=== PATIENT | female | born 1930 | race Caucasian/White ===

== ENCOUNTER 2017-10-12 11:08 | Emergency (ER) | payer OTHER ==
[2017-10-12] MEDS ORDERED: NA CHLORIDE 0.9% 500 ML ONE (11:38)
--- NOTE | 2017-10-12 11:54 | RAD REPORT ---
EXAM DESCRIPTION: CT - Head Brain Wo Cont - 10/12/2017 11:49 am CLINICAL HISTORY: Syncope, head injury. COMPARISON: 02/08/2012 TECHNIQUE: All CT scans are performed using dose optimization technique as appropriate and may inclu de automated exposure control or mA/KV adjustment according to patient size. FINDINGS: No intracranial hemorrhage, hydrocephalus or extra-axial fluid collection.No areas of brai n edema or evidence of midline shift. The paranasal sinuses and mastoids are clear. The calvarium is intact. IMPRESSION: No acute intracranial abnormality.
[2017-10-12 11:58] LABS: Absolute Lymphocytes (CBC) 1.1 K/uL (0.7-4.9); Absolute Monocytes 0.5 K/uL (0.1-1.3); Absolute Neutrophil 5.1 K/uL (1.8-8.0); Basophils % 0.6 % (0-1.3); Eosinophils % 1.3 % (0-4.4); Hematocrit 34.2 % (36.0-45.0); Lymphocytes % 16.2 % (15.3-44.8); MCH 31.4 pg (27.0-35.0); MCV 94.1 fL (80-100); MPV 7.4 fL (7.6-11.3); Monocytes % 7.4 % (3.3-12.3); RBC Red Blood Cell Count 3.63 M/uL (3.86-4.86)
[2017-10-12 12:15] LABS: Protime INR 0.97
[2017-10-12 12:24] LABS: CKMB Creatine Kinase MB 3.5 ng/ml (0.3-4.0)
[2017-10-12 13:03] LABS: Thyroid Stimulating Hormone 2.04 uIU/mL (0.34-5.60)
--- NOTE | 2017-10-12 13:04 | EDPHYS ---
Physician Documentation [facility] Name: Daphne Dorado Age: 87 yrs Sex: Female : 1930 Arrival Date: 10/12/2017 Time: 11:11 Bed 23 Private MD: Alexx Mayer ED Physician Wilfredo Gruber HPI: 10/12 12:39 This 87 yrs old Female presents to ER via Wheelchair with complaints of rn Passed Out Prior To Arrival. 12:39 The patient has experienced syncope. Onset: The symptoms/episode began/occurred just rn prior to arrival. Duration: This was a single episode. Associated injury: Head/face: contusion. Current symptoms: Currently, the patient is not experiencing any symptoms. The patient has experienced similar episodes in the past. Reports hx of multiple episodes of passing out, far in between, had walked 5 miles this morning as she normally does, felt lightheaded when talking to neighbor, then woke up on floor, hit head on hard surface, no seizure, no vomiting, feels fine now, no headache, not on anticoagulation. Denies chest pain/abd pain/focal neuro complaint prior to passing out or now. States doesn't drink as much water as she should.. Historical: - Allergies: 11:23 No Known Allergies; tw2 - Home Meds: 11:23 levothyroxine 75 mcg tab 1 tab once daily [Active]; tw2 - PSHx: 11:23 Thyroidectomy; tw2 - Immunization history:: Adult Immunizations up to date. - Social history:: Smoking status: Patient/guardian denies using tobacco. - Family history:: not pertinent. - Hospitalizations: : No recent hospitalization is reported. ROS: 12:39 Constitutional: Negative for fever, chills, and weight loss, Eyes: Negative for injury, rn pain, redness, and discharge, Neck: Negative for injury, pain, and swelling, Cardiovascular: Negative for chest pain, palpitations, and edema, Respiratory: Negative for shortness of breath, cough, wheezing, and pleuritic chest pain, Abdomen/GI: Negative for abdominal pain, nausea, vomiting, diarrhea, and constipation, Back: Negative for injury and pain, MS/Extremity: Negative for injury and deformity, Skin: Negative for injury, rash, and discoloration, Neuro: Negative for headache, weakness, numbness, tingling, and seizure. Exam: 12:39 Constitutional: This is a well developed, well nourished patient who is awake, alert, rn and in no acute distress. Head/Face: Normocephalic, atraumatic. Eyes: Pupils equal round and reactive to light, extra-ocular motions intact. Lids and lashes normal. Conjunctiva and sclera are non-icteric and not injected. Cornea within normal limits. Periorbital areas with no swelling, redness, or edema. ENT: dry MM Neck: Trachea midline, no thyromegaly or masses palpated, and no cervical lymphadenopathy. Supple, full range of motion without nuchal rigidity, or vertebral point tenderness. No Meningismus. Cardiovascular: Regular rate and rhythm with a normal S1 and S2. No gallops, murmurs, or rubs. Normal PMI, no JVD. No pulse deficits. Respiratory: Lungs have equal breath sounds bilaterally, clear to auscultation and percussion. No rales, rhonchi or wheezes noted. No increased work of breathing, no retractions or nasal flaring. Abdomen/GI: Soft, non-tender, with normal bowel sounds. No distension or tympany. No guarding or rebound. No evidence of tenderness throughout. Back: No spinal tenderness. No costovertebral tenderness. Full range of motion. MS/ Extremity: Pulses equal, no cyanosis. Neurovascular intact. Full, normal range of motion. Equal circumference. Neuro: Awake and alert, GCS 15, oriented to person, place, time, and situation. Cranial nerves II-XII grossly intact. Motor strength 5/5 in all extremities. Sensory grossly intact. Cerebellar exam normal. Normal gait. 13:00 ECG was reviewed by the Attending Physician. rn Vital Signs: 11:23 BP 108 / 67; Pulse 75; Resp 17; Temp 98.0(TE); Pulse Ox 96% on R/A; Weight 38.56 kg tw2 (R); Height 5 ft. 2 in. (157.48 cm); Pain 0/10; 12:30 BP 133 / 64; Pulse 49; Resp 15; Pulse Ox 98% on R/A; sv 11:23 Body Mass Index 15.55 (38.56 kg, 157.48 cm) tw2 MDM: 11:26 Patient medically screened. rn 13:01 Differential Diagnosis: idiopathic syncope, vasovagal episode, dehydration. Data rn reviewed: vital signs, nurses notes, lab test result(s), EKG, radiologic studies, CT scan, and as a result, I will discharge patient. Counseling: I had a detailed discussion with the patient and/or guardian regarding: the historical points, exam findings, and any diagnostic results supporting the discharge/admit diagnosis, lab results, radiology results, the need for outpatient follow up, to return to the emergency department if symptoms worsen or persist or if there are any questions or concerns that arise at home. Special discussion: I discussed with the patient/guardian in detail that at this point there is no indication for admission to the hospital. It is understood, however, that if the symptoms persist or worsen the patient needs to return immediately for re-evaluation. ED course: Normal BP, normal ecg, neg trop, normal ct head, normal neuro exam, fit and walks miles daily, not drinking water, + mild dehydration/ pre-renal on labs, will dc home with return precautions. . 10/12 11:33 Order name: Basic Metabolic Panel; Complete Time: 13:10/12 11:33 Order name: BNP; Complete Time: 12:10/12 11:33 Order name: CBC with Diff; Complete Time: 12:10/12 11:33 Order name: Ckmb; Complete Time: 13:10/12 11:33 Order name: CPK; Complete Time: 13:10/12 11:33 Order name: Magnesium; Complete Time: 13:10/12 11:33 Order name: CT Head Brain wo Cont; Complete Time: 12:10/12 11:33 Order name: Protime (+inr); Complete Time: 12:10/12 11:33 Order name: Ptt, Activated; Complete Time: 12:10/12 11:33 Order name: Troponin (emerg Dept Use Only); Complete Time: 12:59 10/12 11:33 Order name: EKG; Complete Time: 11:34 10/12 11:33 Order name: TSH; Complete Time: 13:10/12 11:33 Order name: T4 Free; Complete Time: 13:10/12 11:33 Order name: Cardiac monitoring; Complete Time: 11:42 10/12 11:33 Order name: EKG - Nurse/Tech; Complete Time: 12:30 rn 10/12 11:33 Order name: IV Saline Lock; Complete Time: : rn 10/12 11: Order name: Labs collected and sent; Complete Time: rn 10/12 11: Order name: NPO; Complete Time: : rn 10/12 11:33 Order name: O2 Per Protocol; Complete Time: rn 10/12 11: Order name: O2 Sat Monitoring; Complete Time: : rn EC:00 Rate is 61 beats/min. Rhythm is regular. QRS [place] is Normal. SD interval is normal. QRS rn interval is normal. QT interval is normal. No Q waves. T waves are Normal. No ST changes noted. Clinical impression: Normal ECG. Interpreted by me. Administered Medications: 12:13 Drug: NS 0.9% 500 ml Route: IV; Rate: bolus; Site: right antecubital; sv 13:00 Follow up: Response: No adverse reaction; IV Status: Completed infusion; IV Intake: sv 500ml Disposition: 10/12/17 13:02 Discharged to Home. Impression: Dehydration, Syncope and collapse. - Condition is Stable. - Discharge Instructions: Dehydration, Adult, Syncope. - Medication Reconciliation Form, Thank You Letter, Antibiotic Education, Prescription Opioid Use form. - Follow up: Alexx Mayer MD; When: As needed; Reason: Recheck today's complaints, Re-evaluation by your physician. - Problem is new. - Symptoms have improved. Signatures: Dispatcher [employer] Leatha Fuentes RN RN dm5 Carmen Knox RN RN sv Wilfredo Gruber MD MD rn Wise, Tara RN RN tw2 Corrections: (The following items were deleted from the chart) 12:41 12:39 Reports hx of multiple episodes of passing out, far in between, had walked 5 rn miles this morning as she normally does, felt lightheaded when talking to neighbor, then woke up on floor, hit head on hard surface, no seizure, no vomiting, feels fine now, no headache, not on anticoagulation. Denies chest pain/abd pain/focal neuro complaint prior to passing out or now. . rn 12:42 12:39 Constitutional: This is a well developed, well nourished patient who is awake, rn alert, and in no acute distress. Head/Face: Normocephalic, atraumatic. Eyes: Pupils equal round and reactive to light, extra-ocular motions intact. Lids and lashes normal. Conjunctiva and sclera are non-icteric and not injected. Cornea within normal limits. Periorbital areas with no swelling, redness, or edema. Neck: Trachea midline, no thyromegaly or masses palpated, and no cervical lymphadenopathy. Supple, full range of motion without nuchal rigidity, or vertebral point tenderness. No Meningismus. Cardiovascular: Regular rate and rhythm with a normal S1 and S2. No gallops, murmurs, or rubs. Normal PMI, no JVD. No pulse deficits. Respiratory: Lungs have equal breath sounds bilaterally, clear to auscultation and percussion. No rales, rhonchi or wheezes noted. No increased work of breathing, no retractions or nasal flaring. Abdomen/GI: Soft, non-tender, with normal bowel sounds. No distension or tympany. No guarding or rebound. No evidence of tenderness throughout. Back: No spinal tenderness. No costovertebral tenderness. Full range of motion. MS/ Extremity: Pulses equal, no cyanosis. Neurovascular intact. Full, normal range of motion. Equal circumference. Neuro: Awake and alert, GCS 15, oriented to person, place, time, and situation. Cranial nerves II-XII grossly intact. Motor strength 5/5 in all extremities. Sensory grossly intact. Cerebellar exam normal. Normal gait. rn
--- NOTE | 2017-10-12 13:04 | ER ---
Nurse's Notes [facility] Name: Daphne Dorado Age: 87 yrs Sex: Female : 1930 Arrival Date: 10/12/2017 Time: 11:11 Bed 23 Private MD: Alexx Mayer Diagnosis: Dehydration;Syncope and collapse Presentation: 10/12 11:21 Presenting complaint: Patient states: "she passed out, they changed her thyroid tw2 medicine", neighbor said she fell and hit her head on floor, "i felt i was dizzy but i didn't know i was going to pass out". Transition of care: patient was not received from another setting of care. Onset of symptoms was October 12, 2017. Initial Sepsis Screen: Does the patient meet any 2 criteria? No. Patient's initial sepsis screen is negative. Does the patient have a suspected source of infection? No. Patient's initial sepsis screen is negative. Care prior to arrival: None. 11:21 Method Of Arrival: Wheelchair tw2 11:21 Acuity: FRANCS[place] 3 tw2 Historical: - Allergies: 11:23 No Known Allergies; tw2 - Home Meds: 11:23 levothyroxine 75 mcg tab 1 tab once daily [Active]; tw2 - PSHx: 11:23 Thyroidectomy; tw2 - Immunization history:: Adult Immunizations up to date. - Social history:: Smoking status: Patient/guardian denies using tobacco. - Family history:: not pertinent. - Hospitalizations: : No recent hospitalization is reported. Screenin:42 Abuse screen: Denies threats or abuse. Denies injuries from another. Nutritional iw screening: No deficits noted. Tuberculosis screening: No symptoms or risk factors identified. Fall Risk Fall in past 12 months (25 points). IV access (20 points). Assessment: 11:40 General: Appears in no apparent distress. comfortable, slender, Behavior is calm, sv cooperative, appropriate for age. Pain: Denies pain. Neuro: Level of Consciousness is awake, alert, obeys commands, Oriented to person, place, time, situation, Moves all extremities. Full function Reports dizziness, a syncopal episode. Cardiovascular: Patient's skin is warm and dry. Respiratory: Respiratory effort is even, unlabored, Respiratory pattern is regular, symmetrical. Derm: Skin is pink, warm \\T\\ dry. Musculoskeletal: Range of motion: intact in all extremities. 12:13 Reassessment: Patient appears in no apparent distress at this time. No changes from sv previously documented assessment. Patient and/or family updated on plan of care and expected duration. Pain level reassessed. Patient is alert, oriented x 3, equal unlabored respirations, skin warm/dry/pink. Vital Signs: 11:23 BP 108 / 67; Pulse 75; Resp 17; Temp 98.0(TE); Pulse Ox 96% on R/A; Weight 38.56 kg tw2 (R); Height 5 ft. 2 in. (157.48 cm); Pain 0/10; 12:30 BP 133 / 64; Pulse 49; Resp 15; Pulse Ox 98% on R/A; sv 11:23 Body Mass Index 15.55 (38.56 kg, 157.48 cm) tw2 ED Course: 11:11 Patient arrived in ED. mr 11:11 Alexx Mayer MD is Private Physician. mr 11:22 Triage completed. tw2 11:24 Arm band placed on. tw2 11:26 Wilfredo Gruber MD is Attending Physician. rn 11:30 Piedad Kim, RN is Primary Nurse. iw 11:37 Primary Nurse role handed off by Piedad Kim, SHERON sv 11:37 Carmen Knox, RN is Primary Nurse. sv 11:40 Patient has correct armband on for positive identification. Placed in gown. Bed in low sv position. Call light in reach. Side rails up X 1. Adult w/ patient. playground monitor on. Pulse ox on. NIBP on. Door closed. Warm blanket given. Head of bed elevated. 11:42 Initial lab(s) drawn, by ak, sent to lab. Inserted saline lock: 20 gauge in right iw antecubital area, using aseptic technique. Blood collected. 11:[address] via wheelchair. sv 11:49 CT Head Brain wo Cont In Process Unspecified. EDMS 11:50 CT completed. Patient tolerated procedure well. Patient moved to CT via wheelchair. jg1 Patient moved back from CT. 12:07 EKG done, by retail service technician. reviewed by Wilfredo Gruber MD. at1 12:53 Awaiting lab results, Awaiting re-evaluation by ER provider. sv 13:02 Alexx Mayer MD is Referral Physician. rn 13:27 No provider procedures requiring assistance completed. IV discontinued, intact, dm5 bleeding controlled, No redness/swelling at site. Pressure dressing applied. Administered Medications: 12:13 Drug: NS 0.9% 500 ml Route: IV; Rate: bolus; Site: right antecubital; sv 13:00 Follow up: Response: No adverse reaction; IV Status: Completed infusion; IV Intake: sv 500ml Intake: 13:00 IV: 500ml; Total: 500ml. sv Outcome: 13:02 Discharge ordered by MD. rn 13:27 Discharged to home ambulatory. dm5 13: Condition: good 13:27 Discharge instructions given to patient, Instructed on discharge instructions, follow up and referral plans. medication usage, Demonstrated understanding of instructions, follow-up care, medications. 13:29 Patient left the ED. dm5 Signatures: Dispatcher [employer] EDMS Leatha Johnson, RN SHERON dm5 Carmen Knox, RN Brenda Singletary mr Abdalla, Andressa jPiedad Sheriff, RN Wilfredo Callaway MD MD rn gonzales, Amanda, web producer EKG Tat1 Chaparrita Maldonado RN RN tw2
[2017-10-12 13:35] VITALS: TEMP 98
[2017-10-12 13:36] VITALS: BP 133/64; O2SAT 98
--- NOTE | 2017-10-13 07:00 | EKG ---
Test Date: 2017-10-12 Test Time: 11:54:37 Shake Splitter: GOPI MEASUREMENT RESULTS: Intervals: Rate: 61 RI: 188 QRSD: 82 QT: 390 QTc: 392 [place]: P: 57 RI: 188 QRS: 59 T: 62 INTERPRETIVE STATEMENTS: Normal sinus rhythm Normal ECG Compared to ECG 02/08/2012 12:24:39 Atrial flutter no longer present 2:1 AV block no longer present ST (T wave) deviation no longer present Electronically Signed On 10-13-17 07:00:20 CDT by Ramón Aguirre
== END 2017-10-12 13:29 | disposition home or self-care (01) ==
LOC: ER 11:08
DX: E86.0 Dehydration (principal); W18.39XA Other fall on same level, initial encounter; Y93.01 Activity, walking, marching and hiking; Y92.89 Other specified places as the place of occurrence of the external cause
CPT/HCPCS: 36415; 70450; 80048; 82550; 82553; 83735; 83880; 84439; 84443; 84484; 85025; 85610; 85730; 93005; 96360; 99285